=== PATIENT | male | born 1980 | race Hispanic/Latino ===

== ENCOUNTER 2018-11-28 07:54 | Day surgery (SDC) | payer BC ==
[2018-11-25 11:19] VITALS: BMI 34.5
[2018-11-28 08:15] LABS: #Eosinphils 0.1 thou/uL (0.0-0.7); #Lymphocytes 1.7 thou/uL (1.20-3.40); #Monocytes 0.5 thou/uL (0.11-0.59); #Neutrophils 4.4 thou/uL (1.40-6.50); %Basophils 0.1 % (0.0-1.0); %Eosinophils 1.3 % (0.0-10.0); %Lymphocytes 25.4 % (21.0-51.0); %Monocytes 7.4 % (0.0-10.0); %Neutrophils 65.7 % (42.0-75.0); Hemoglobin 16.2 g/dL (14.0-18.0); Mean Corpuscular HGB CONC 36.3 g/dL (32.0-36.0); Mean Corpuscular Hemoglobin 32.6 pg (27.0-31.0); Mean Corpuscular Volume 89.7 fL (78.0-98.0); Mean Platelet Volume 6.7 fL (7.4-10.4); Platelet Count 276 thou/uL (130-400); RBC Distribution Width 12.5 % (11.5-14.5); Red Blood Cell (RBC) Count 4.96 mill/uL (4.70-6.10); White Blood Cell (WBC) Count 6.7 thou/uL (4.8-10.8)
[2018-11-28] MEDS ORDERED: Fentanyl 100 MCG/2 ML VIAL ONE (08:52)
[2018-11-28] MEDS ORDERED: Sodium Bicarbonate 2.5 MEQ/5 ML VIAL ONE (08:53)
[2018-11-28] MEDS ORDERED: Midazolam HCl 2 mg/2 ml Vial ONE (08:53)
[2018-11-28 09:06] VITALS: BP 120/87; TEMP 98.4
--- NOTE | 2018-11-28 10:25 | ULT ---
ULTRASOUND GUIDED HEPATIC BIOPSY: CLINICAL HISTORY: Abnormal liver function enzymes. PROCEDURE: Informed consent was obtained and the patient was escorted to the procedural suite, placed in supine position. The patient's skin was prepped and draped in a standard sterile fashion and topical anesthesia with b uffered 1% lidocaine was performed. After a small skin incision was made, an 18-gauge needle was advanced to the leading edge of the left hepatic lobe. After adequate placement was confirmed with ul trasound imaging, 1 subsequent core specimen was obtained via percutaneous biopsy. Specimen was placed in a sealed, formalin container and was sent to pathology department for further analysis. No unexpected procedural complications were present. The patient was monitored in radiology holding i n stable condition prior to discharge with family member. IMPRESSION: Technically successful ultrasound-guided percutaneous hepatic biopsy. Pathology results are pending.
== END 2018-11-28 11:10 | disposition home or self-care (01) ==
LOC: ULT 07:54
PROVIDERS: ATTEND Internal Medicine Gastroenterology
PROC: 0FB03ZX Excision of Liver, Percutaneous Approach, Diagnostic (ICD-10-PCS; principal; 2018-11-28)
PROC: BF45ZZZ Ultrasonography of Liver (ICD-10-PCS; principal; 2018-11-28)
DX: K75.81 Nonalcoholic steatohepatitis (NASH) (principal); L40.50 Arthropathic psoriasis, unspecified; Z79.52 Long term (current) use of systemic steroids; Z79.899 Other long term (current) drug therapy
CPT/HCPCS: 36415; 47000; 76942; 85025; 88307; 88313; J2250; J3010